=== PATIENT | male | born 1975 | race Caucasian/White ===

== ENCOUNTER 2019-03-15 15:54 | Emergency (ER) | payer OTHER ==
[2019-03-15 16:21] VITALS: BP 139/87
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
--- NOTE | 2019-03-15 17:58 | RADIOLOGY REPORT (SQ) ---
EXAM DESCRIPTION: TIBIA FIBULA LEFT COMPLETED DATE/TIME: 03/15/2019 5:45 pm REASON FOR STUDY: Trauma to left calf on Wednesday swelling pain COMPARISON: None. NUMBER OF VIEWS: Two views. TECHNIQUE: Two radiographic images acquired of the left tibia and fibula to include the knee and ank le in at least one projection. LIMITATIONS: None. FINDINGS: MINERALIZATION: Normal. BONES: No acute fracture or dislocation. No worrisome bone lesions. SOFT TISSUES: No obvious swelling or foreign body. OTHER: No other significant finding. IMPRESSION: NEGATIVE STUDY OF THE LEFT TIBIA AND FIBULA. NO RADIOGRAPHIC EVIDENCE OF ACUTE INJURY. TECHNICAL DOCUMENTATION: JOB ID: [id number] [employer] All Rights Reserved Reading location - IP/workstation name: [email or web address]
[2019-03-15 18:24] LABS: INTERNATIONAL RATION (INR) 0.99; PROTHROMBIN TIME 13.6 SEC (11.4-15.4)
--- NOTE | 2019-03-15 22:19 | RADIOLOGY REPORT (SQ) ---
EXAM DESCRIPTION: US EXTREMITY VEINS UNILATERAL COMPLETED DATE/TME: 03/15/2019 17:21 CLINICAL HISTORY: 43 years Male Trauma to left leg on Wednesday COMPARISON: None. TECHNIQUE: Duplex imaging performed to evaluate left lower extremity venous structures. Compression imaging and augmentation imaging performed. The common femoral, superficial femoral, popliteal, greater saphenous and posterior tibial veins were examined. FINDINGS: No thrombus is identified in the deep venous structures. The peroneal vein was not well seen. Veins responded normally to compression and augmentation.. IMPRESSION: No DVT is identified in the left lower extremity.
== END 2019-03-15 21:05 | disposition left against medical advice (07) ==
LOC: ER 15:54
DX: M79.662 Pain in left lower leg (principal); M79.89 Other specified soft tissue disorders; W22.8XXA Striking against or struck by other objects, initial encounter; Y93.89 Activity, other specified; Y92.814 Boat as the place of occurrence of the external cause; I25.2 Old myocardial infarction; I10 Essential (primary) hypertension; Z95.5 Presence of coronary angioplasty implant and graft; Z95.0 Presence of cardiac pacemaker; Z79.02 Long term (current) use of antithrombotics/antiplatelets; Z53.20 Procedure and treatment not carried out because of patient's decision for unspecified reasons
CPT/HCPCS: 36415; 85610; 85730; 93971; 99281

== ENCOUNTER 2019-03-17 09:31 | Emergency (ER) | payer OTHER ==
[2019-03-17 09:36] VITALS: BP 141/92
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
== END 2019-03-17 10:38 | disposition home or self-care (01) ==
LOC: ER 09:31
DX: L03.116 Cellulitis of left lower limb (principal); M79.662 Pain in left lower leg; W20.8XXA Other cause of strike by thrown, projected or falling object, initial encounter; Y93.89 Activity, other specified; I10 Essential (primary) hypertension; E78.5 Hyperlipidemia, unspecified; Z79.899 Other long term (current) drug therapy; F17.200 Nicotine dependence, unspecified, uncomplicated
CPT/HCPCS: 99283